=== PATIENT | male | born 1970 | race Caucasian/White ===

== ENCOUNTER → 2022-11-08 | Outpatient (CLI) | payer OTHER ==
--- NOTE | 2022-11-08 11:52 | US ---
EXAMINATION TYPE: US scrotum with doppler. TECHNIQUE: Grayscale and color Doppler Duplex imaging performed of the scrotum. DATE OF EXAM: 11/08/2022 COMPARISON: NONE CLINICAL INDICATION: Male, 51 years old with history of N50.812 LEFT TESTICULAR PAIN; pain left testi micah FINDINGS: EXAM MEASUREMENTS: TESTICLES: Right Testicle: 3.3 x 2.1 x 2.9 cm Left Testicle: 3.6 x 2.1 x 2.4 cm EPIDIDYMIS HEAD: Right Epididymis: .8 x .9 x 1.2 cm Left Epididymis: .9 x .9 x 1.0 cm Doppler performed to assess for testicular vascularity; good bilateral color flow and waveforms are s een. There is no evidence of testicular torsion. Presence of hydroceles: Trace on both sides. Presence of varicoceles: no IMPRESSION: 1. No sonographic evidence for testicular torsion or epididymoorchitis. 2. Trace nonspecific bilateral hydroceles.
== END | disposition home or self-care (01) ==
LOC: RADUSWWP 10:59
PROVIDERS: ATTEND Family Medicine
DX: N50.812 Left testicular pain (principal)
CPT/HCPCS: 76870; 93975

== ENCOUNTER → 2023-01-27 | Outpatient (CLI) | payer OTHER ==
--- NOTE | 2023-01-27 15:52 | US ---
EXAMINATION TYPE: US thyroid st tissue head/neck DATE OF EXAM: 01/27/2023 COMPARISON: NONE CLINICAL INDICATION: Male, 52 years old with history of E039. ACQUIRED HYPOTHYROIDISM; Acquired hypot hyroidism. Patient is on thyroid medication. GLAND SIZE: Right Lobe: 5.2 x 1.6 x 2.8 cm Overall Parenchyma: Very heterogeneous Left Lobe: 4.8 x 1.5 x 1.8 cm Overall Parenchyma: Very heterogeneous Isthmus Thickness: 0.37 cm NODULES RIGHT: # of nodules measured on right: 0 LEFT: # of nodules measured on left: 0 ISTHMUS: # of nodules measured in the isthmus: 0 Bilateral neck scanned, no evidence of lymphadenopathy. Thyroid gland was very heterogeneous, limiting ability to identify any possible nodules* IMPRESSION: Diffuse glandular heterogeneity without distinct nodule seen. Correlate with thyroid function testing .
== END | disposition home or self-care (01) ==
LOC: RADUSWWP 14:56
PROVIDERS: ATTEND Family Medicine
DX: E03.9 Hypothyroidism, unspecified (principal)
CPT/HCPCS: 76536

== ENCOUNTER 2023-09-12 10:04 | Day surgery (SDC) | payer OTHER ==
[2023-09-08 14:55] VITALS: BMI 25.1
[~2023-09-12 10:04] MED LIST: LIDOCAINE 1% (10MG/ML) FOR IV START INTRADERMA PRN
[2023-09-12] MEDS: LACTATED RINGERS 1,000 ML IV SCH (10:23)
[2023-09-12 10:37] VITALS: RESP 18; TEMP 97
[2023-09-12] MEDS ORDERED: PROPOFOL 10 MG/ML 20 ML VIAL IV ONE (10:41)
--- NOTE | 2023-09-12 10:43 | P.GSHP ---
History of Present Illness H&P Date: 09/12/23 Chief Complaint: Colon cancer screening 52-year-old male here today for colonoscopy. He has not had one previously. No bowel complaints. No family history of colon cancer. Past Medical History Past Medical History: Hyperlipidemia, Thyroid Disorder History of Any Multi-Drug Resistant Organisms: None Reported Additional Past Surgical History / Comment(s): dental Past Anesthesia/Blood Transfusion Reactions: No Reported Reaction Additional Past Anesthesia/Blood Transfusion Reaction / Comment(s): no blood transfusion Smoking Status: Current every day smoker Medications and Allergies Home Medications Medication Instructions Recorded Confirmed Type Levothyroxine Sodium [Synthroid] 50 mcg PO DAILY 09/08/23 09/08/23 History Allergies Allergy/AdvReac Type Severity Reaction Status Date / Time No Known Allergies Allergy Verified 09/08/23 14:16 Surgical - Exam Vital Signs Temp Pulse Resp BP Pulse Ox 97.0 F L 79 18 116/69 97 09/12/23 10:22 09/12/23 10:22 09/12/23 10:22 09/12/23 10:22 09/12/23 10:22 Physical exam: General: Well-developed, well-nourished HEENT: Normocephalic, sclerae nonicteric Abdomen: Nontender, nondistended Extremities: No edema Neuro: Alert and oriented Assessment and Plan (1) Colon cancer screening Narrative/Plan: Will proceed with colonoscopy at this time. Current Visit: Yes Status: Acute Code(s): Z12.11 - ENCOUNTER FOR SCREENING FOR MALIGNANT NEOPLASM OF COLON SNOMED Code(s): 686257330
[2023-09-12] MEDS: IV FLUID CONTINUATION 1,000 ML IV ONE (10:56)
--- NOTE | 2023-09-12 10:57 | P.PCN ---
Date of Procedure: 09/12/23 Procedure(s) Performed: PREOPERATIVE DIAGNOSIS: Colon cancer screening POSTOPERATIVE DIAGNOSIS: Diverticulosis, rectal polyp PROCEDURE: Colonoscopy with snare polypectomy ANESTHESIA: MAC SURGEON: Tone Hernandez M.D. SPECIMENS: Rectal polyp ENDOSCOPIC PROCEDURE: The patient was placed on the endoscopy table in the left decubitus position. The Olympus colonoscope was inserted into the anus and passed under direct visualization to the base of the cecum. The appendiceal orifice was visualized. From that point the scope was slowly withdrawn inspecting all surfaces carefully. There were no neoplastic inflammatory or polypoid lesions throughout the cecum, ascending, transverse, descending, and sigmoid colon. In the rectum a small polyp was seen and removed using the snare with cautery technique. The remainder of the rectum was normal with the exception of some prominent hemorrhoidal vasculature. The patient had mild left-sided diverticulosis. Digital rectal examination was normal. The patient was taken to the recovery room in stable condition per anesthesia guidelines. RECOMMENDATIONS: Await biopsy results. Will contact patient with timing of next colonoscopy.
[2023-09-12 11:14] VITALS: BP 137/78; PULSE 78
== END 2023-09-12 11:33 | disposition home or self-care (01) ==
LOC: ORWHC2ENDO 10:04
PROVIDERS: ATTEND Surgery
DX: Z12.11 Encounter for screening for malignant neoplasm of colon (principal); K62.1 Rectal polyp; K57.30 Diverticulosis of large intestine without perforation or abscess without bleeding; E78.5 Hyperlipidemia, unspecified; E07.9 Disorder of thyroid, unspecified; F31.9 Bipolar disorder, unspecified; F43.10 Post-traumatic stress disorder, unspecified; F17.210 Nicotine dependence, cigarettes, uncomplicated; F12.90 Cannabis use, unspecified, uncomplicated; Z79.890 Hormone replacement therapy; Z79.899 Other long term (current) drug therapy
CPT/HCPCS: 88305; 45385; J2704